=== PATIENT | female | born 1955 | race Caucasian/White ===

== ENCOUNTER 2019-02-07 15:05 | Observation (INO) ==
[2019-02-07] MEDS ORDERED: Isovue-370 500 ML BOTTLE IVP ONE (15:16)
--- NOTE | 2019-02-07 15:27 | Emergency Department Note ---
Disposition Clinical Impression: Stroke Qualifiers: CVA mechanism: unspecified Qualified Code(s): I63.9 - Cerebral infarction, unspecified Leukocytosis Qualifiers: Leukocytosis type: unspecified Qualified Code(s): D72.829 - Elevated white blood cell count, unspecified Disposition: Admitted As Inpatient Condition: Fair Referrals: Wan Landis MD [Partnered Physician] - Forms: ED Satisfaction Letter Time of Disposition: 16:11 General Adult HPI - General Stated complaint: Neuro symptoms LKW 1400 Time Seen by Provider: 02/07/19 15:16 - Related Data Home Medications Medication Instructions Recorded Confirmed Albuterol Sulfate [Albuterol 2 puff PO Q4H PRN 09/07/15 01/12/17 Inhaler] Losartan/Hydrochlorothiazide 1 each PO DAILY 09/07/15 01/12/17 [Hyzaar 100-12.5 Tablet] Metoprolol XL (24 HR) Succ [Toprol 100 mg PO DAILY 09/07/15 01/12/17 XL] Pantoprazole Sodium [Protonix] 40 mg PO HS 09/07/15 01/12/17 Aspirin Enteric Coated [Aspirin EC] 81 mg PO DAILY 12/09/15 01/12/17 Calcium Carbonate [Calcium] 500 mg PO BID 12/09/15 01/12/17 Ergocalciferol (VITAMIN D2) 2,000 unit PO DAILY 12/09/15 01/12/17 [Vitamin D2] LORazepam [Ativan] 0.5 mg PO HS PRN 12/09/15 01/12/17 TraZODone 150 mg PO HS 12/09/15 01/12/17 Ascorbate Calcium [Vitamin C] 500 mg PO DAILY 01/12/17 01/12/17 Diclofenac Sodium [Voltaren] 1 appl TP QID PRN 01/12/17 01/12/17 Fluticasone Propionate Nasal 1 spray NS BID 01/12/17 01/12/17 [Flonase] Fluticasone/Salmeterol [Advair 1 puff IH BID 01/12/17 01/12/17 250-50 Diskus] Gabapentin [Neurontin] 400 mg PO QAM 01/12/17 01/12/17 Ibuprofen [Motrin] 800 mg PO Q8HR PRN 01/12/17 01/12/17 [place]-3/Dha/Epa/Fish Oil [Fish Oil 1 each PO DAILY 01/12/17 01/12/17 1,000 mg Softgel] Simvastatin [Zocor] 40 mg PO HS 01/12/17 01/12/17 Baclofen 10 mg PO PRN PRN MDD 3 06/14/18 06/14/18 Meloxicam 15 mg PO DAILY 06/14/18 06/14/18 Previous Rx's Medication Instructions Recorded Amoxicillin 875 mg PO BID #20 tablet 06/14/18 Phenylephrine HCl/Prometh HCl 5 - 10 ml PO QID PRN #180 syrup 06/14/18 [Promethazine-Phenylephrine Syr] predniSONE [PredniSONE] 0 mg PO DAILY #15 tablet 06/14/18 Allergies Allergy/AdvReac Type Severity Reaction Status Date / Time ciprofloxacin [From Cipro] Allergy Rash Verified 09/12/17 12:39 Past Medical History - Past Medical History Medical history: Reports: COPD, hypertension, other Surgical history: Reports: non-contributory, , hysterectomy, orthopedic, other, other Psychiatric history: Reports: anxiety, depression - Social History Smoking Status: Current every day smoker Smokeless Tobacco Status: No Alcohol use: Reports: none Drug use: Reports: none Course Vital Signs Pulse Rate 63 02/07/19 15:09 Respiratory Rate 16 02/07/19 15:09 Blood Pressure 135/88 02/07/19 15:09 Temperature 98.9 F 02/07/19 15:12 Pulse Rate 68 02/07/19 15:12 Respiratory Rate 15 02/07/19 15:12 Blood Pressure 143/97 02/07/19 15:12 O2 Sat by Pulse Oximetry 98 02/07/19 15:12 Oxygen Delivery Oxygen Delivery Room Air Medical Decision Making - Lab Data Result diagrams: 02/07/19 15:13 02/07/19 15:13 Lab Results 02/07/19 02/07/19 02/07/19 Range/Units 15:13 15:13 15:13 WBC 16.5 H (4.3-11.1) K/mcL RBC 4.49 (3.82-4.97) M/mcL Hgb 15.2 (11.5-15.4) g/dL Hct 44.6 (35.3-44.9) % MCV 99.3 (83.0-100.0) fL MCH 33.9 H (28.0-33.3) pg MCHC 34.1 (31.6-35.5) g/dL RDW 13.7 (11.5-14.5) % Plt Count 242 (140-400) K/mcL MPV 11.0 (9.4-12.4) fL PT 11.6 (9.4-12.1) Seconds INR 1.0 APTT 28.8 (26.0-36.0) Seconds Sodium 140 (136-145) mEq/L Potassium 3.9 (3.5-5.1) mEq/L Chloride 106 (98-107) mEq/L Carbon Dioxide 30 H (23-29) mEq/L BUN 13 (8-23) mg/dL Creatinine 0.93 (0.60-1.20) mg/dL Est GFR ( Amer) > 60 (> 60) Est GFR (Non-Af Amer) > 60 (> 60) BUN/Creatinine Ratio 14 (6-26) Glucose 111 H (70-105) mg/dL Calculated Osmolality 291 (280-300) Calcium 9.4 (8.6-10.3) mg/dL Troponin I < 0.03 (< 0.04) ng/mL Critical Care Time Critical Care Time: Yes Total Critical Care Time: 35 Attestation: Critical care performed: Time is exclusive of separately billable procedures. Time includes: direct patient care, patient reassessment, coordination of patient care, interpretation of data (laboratory data, radiology data, and respiratory data), review of patient's medical records, medical consultation and documentation of patient care. Procedures included in critical care time: Procedures excluded from critical care time: Attestation Statement - Attestation Attestation: I examined this patient and my medical decision-making was reviewed with the Resident Physician. I agree with the documented findings, disposition and elio tment plan as described except to the extent set forth below. Patient presents to the ED with a chief complaint of left-sided weakness. Onset at 10 AM while drinking her coffee. She states it started as tingling in the top of her foot. Progressed to her arm and face. She is having trouble speaking. History of many stroke 2. On exam she is awake alert. Speech is slow and slightly slurred. Cannot appreciate any pronator drift. Sensation is intact and symmetric. Cranial nerves are grossly intact as well. Plan. Symptoms are mild. Stroke alert was called. Patient is sent for CT CTA. 1547. CT head negative. EKG revealed with the resident. Normal sinus at 65. CT unremarkable as well. Patient's symptoms improved. Tele-stroke was performed with neurology. Not acting TPA candidate this time secondary to time from presentation and how mild her symptoms are. We will admit for further stroke workup.
[2019-02-07 15:29] LABS: Hematocrit 44.6 % (35.3-44.9); Hemoglobin 15.2 g/dL (11.5-15.4); Mean Corpuscular HGB Conc 34.1 g/dL (31.6-35.5); Mean Corpuscular Hemoglobin 33.9 pg (28.0-33.3); Mean Corpuscular Volume 99.3 fL (83.0-100.0); Platelet Count 242 K/mcL (140-400); Red Blood Count 4.49 M/mcL (3.82-4.97); Red Cell Distribution Width 13.7 % (11.5-14.5); White Blood Count 16.5 K/mcL (4.3-11.1)
[2019-02-07 15:42] LABS: Prothrombin Time 11.6 Seconds (9.4-12.1)
[2019-02-07 15:44] LABS: Activated Partial Thrombo Time 28.8 Seconds (26.0-36.0)
[2019-02-07 15:45] LABS: BUN/Creatinine Ratio 14 (6-26); Blood Urea Nitrogen 13 mg/dL (8-23); Calcium 9.4 mg/dL (8.6-10.3); Carbon Dioxide 30 mEq/L (23-29); Chloride 106 mEq/L (98-107); Glucose 111 mg/dL (70-105); Osmolality,Calculated 291 (280-300); Potassium 3.9 mEq/L (3.5-5.1); Sodium 140 mEq/L (136-145); eGFR For African Americans > 60 (> 60); eGFR For Non-African Americans > 60 (> 60)
[2019-02-07 15:46] LABS: Troponin I < 0.03 ng/mL (< 0.04)
[2019-02-07] MEDS ORDERED: Aspirin 325 MG TABLET PO ONE (15:49)
--- NOTE | 2019-02-07 15:52 | Emergency Department Note ---
Disposition Clinical Impression: Right sided numbness Disposition: Admitted As Inpatient Condition: Good Forms: ED Satisfaction Letter Time of Disposition: 16:10 Neuro HPI - General Chief Complaint: ED Neuro Symptoms/Deficit Stated Complaint: Neuro symptoms LKW 1400 Time Seen by Provider: 02/07/19 15:16 Source: patient, family Limitations: no limitations Nursing Notes Reviewed: Yes Vital Signs Reviewed: Yes - History of Present Illness HPI Narrative: 63-year-old female history of TIA, hypertension, hyperlipidemia presents to the emergency department with right sided weakness. She states earlier this morning while drinking coffee around 10 AM she began sprinting some numbness along her foot. Over the last several hours this is progressed up to leg and what appears to be in the face with some tongue numbness. She feels like she is slurring her speech. She reports some weakness in her right upper extremity. She is had a similar episode in the past but with associated headaches. She was evaluated for those 2 episodes. She has no sequela from it. She takes a baby aspirin every night. No known history of atrial fibrillation or cardiac ischemic disease. She only takes aspirin and denies any other anticoagulant use. Her sugar was taken here 127. She has intermittent improvement of her tongue numbness. No recent illnesses. No fevers. No ticket bites or recent travel. Stroke alert was initiated. Onset of Symptoms Date: 02/07/19 Onset of Symptoms Time: 10:00 Symptom Onset Unknown: No Timing confirmed by: spouse Location: speech, right leg History of same: Yes - Related Data Home Medications: Home Medications Medication Instructions Recorded Confirmed Albuterol Sulfate [Albuterol 2 puff PO Q4H PRN 09/07/15 01/12/17 Inhaler] Losartan/Hydrochlorothiazide 1 each PO DAILY 09/07/15 01/12/17 [Hyzaar 100-12.5 Tablet] Metoprolol XL (24 HR) Succ [Toprol 100 mg PO DAILY 09/07/15 01/12/17 XL] Pantoprazole Sodium [Protonix] 40 mg PO HS 09/07/15 01/12/17 Aspirin Enteric Coated [Aspirin EC] 81 mg PO DAILY 12/09/15 01/12/17 Calcium Carbonate [Calcium] 500 mg PO BID 12/09/15 01/12/17 Ergocalciferol (VITAMIN D2) 2,000 unit PO DAILY 12/09/15 01/12/17 [Vitamin D2] LORazepam [Ativan] 0.5 mg PO HS PRN 12/09/15 01/12/17 TraZODone 150 mg PO HS 12/09/15 01/12/17 Ascorbate Calcium [Vitamin C] 500 mg PO DAILY 01/12/17 01/12/17 Diclofenac Sodium [Voltaren] 1 appl TP QID PRN 01/12/17 01/12/17 Fluticasone Propionate Nasal 1 spray NS BID 01/12/17 01/12/17 [Flonase] Fluticasone/Salmeterol [Advair 1 puff IH BID 01/12/17 01/12/17 250-50 Diskus] Gabapentin [Neurontin] 400 mg PO QAM 01/12/17 01/12/17 Ibuprofen [Motrin] 800 mg PO Q8HR PRN 01/12/17 01/12/17 [place]-3/Dha/Epa/Fish Oil [Fish Oil 1 each PO DAILY 01/12/17 01/12/17 1,000 mg Softgel] Simvastatin [Zocor] 40 mg PO HS 01/12/17 01/12/17 Baclofen 10 mg PO PRN PRN MDD 3 06/14/18 06/14/18 Meloxicam 15 mg PO DAILY 06/14/18 06/14/18 Previous Rx's Medication Instructions Recorded Amoxicillin 875 mg PO BID #20 tablet 06/14/18 Phenylephrine HCl/Prometh HCl 5 - 10 ml PO QID PRN #180 syrup 06/14/18 [Promethazine-Phenylephrine Syr] predniSONE [PredniSONE] 0 mg PO DAILY #15 tablet 06/14/18 Allergies/Adverse Reactions: Allergies Allergy/AdvReac Type Severity Reaction Status Date / Time ciprofloxacin [From Cipro] Allergy Rash Verified 09/12/17 12:39 All systems ED: reviewed and negative except as stated. Review of Systems: As Per HPI Constitutional: Reports: weakness. Denies: fever, chills ENT ED: Denies: congestion Cardiovascular: Denies: chest pain, palpitations, syncope Respiratory: Denies: dyspnea Gastrointestinal: Denies: abdominal pain, nausea, vomiting Neurological: Reports: headache, weakness, numbness. Denies: confusion Past Medical History - Past Medical History Attestation: Yes The following information was validated with the patient. Source: patient Medical history: Reports: COPD, fibromyalgia, hyperlipidemia, hypertension, TIA, other Surgical history: Reports: non-contributory, , hysterectomy, orthopedic, other, other Psychiatric history: Reports: anxiety, depression - Social History Smoking Status: Current every day smoker Smokeless Tobacco Status: No Alcohol use: Reports: occasionally Drug use: Reports: none Physical Exam - General Limitations: no limitations General appearance: alert, in no apparent distress - Head Head exam: atraumatic, normocephalic, normal inspection - Eye Eye exam: Present: normal appearance, PERRL, EOMI. Absent: nystagmus - ENT ENT exam: normal exam, normal oropharynx, mucous membranes moist - Neck Neck exam: Present: normal inspection, full ROM, trachea midline - Chest Chest inspection: Present: normal inspection, symmetric chest wall rise. Absent: tenderness - Respiratory Respiratory exam: Present: normal lung sounds bilaterally. Absent: respiratory distress, wheezes - Cardiovascular Cardiovascular exam: Present: regular rate, normal rhythm, normal heart sounds - Abdominal Exam Abdominal exam: Present: soft, Non-Tender, normal bowel sounds. Absent: tenderness, distention, guarding, rebound, rigidity - Extremities Exam Extremities exam: Present: normal inspection, full ROM. Absent: tenderness, pedal edema - Neurological Exam Neurological exam: Present: alert, oriented X3, CN II-XII intact - Expanded Neurological Exam Patient oriented to: Present: person, place, time Speech: Present: fluid speech Cranial nerves: EOM function (II, III, IV, ): Normal, facial sensation (V): Normal, facial palsy (VII): Normal, gag reflex (IX): Normal, spinal accessory function (XI): Normal, tongue deviation (XII): Normal Cerebellar function: finger to nose: Normal, heel to porter: Normal Motor strength - LUE: 5/5 Motor strength - RUE: 5/5 Motor strength - LLE: 5/5 Motor strength - RLE: 5/5 Upper motor neuron exam: blue neglect: Absent bilaterally, pronator drift: Absent bilaterally Sensory exam upper extremity: light touch: Normal Sensory exam lower extremity: light touch: Normal Coma Scale Eye Opening: Spontaneous Coma Scale Motor Response: Obeys Commands Coma Scale Verbal Response: Oriented Coma Scale Total: 15 - Psychiatric Psychiatric exam: Present: normal affect, normal mood - Skin Skin exam: Present: warm, dry, intact, normal color. Absent: rash, cyanosis, diaphoresis Course Course Narrative: Stroke alert initiated. NIH score of 2. She is outside the window for TPA and is not a candidate at this time. I spoke with the [facility] neurologist Dr. Corbett who agrees she is not a candidate and that she should be admitted for further evaluation. 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 Patient is agreeable to this plan. - Reevaluation(s) Reevaluation #1: CT imaging unremarkable. She has a leukocytosis of 16 without any IV source infection. This is quite nonspecific. Will obtain a urinalysis. Chest x-ray normal. Patient will be admitted for further evaluation for transient ischemic attack and right side numbness. Time: 16:10 - Consultations Consultation #1: Spoke with on-call hospitalist carola Booth to admit for right side numbness. No further orders at this time Time: 16:47 Vital Signs Pulse Rate 63 02/07/19 15:09 Respiratory Rate 16 02/07/19 15:09 Blood Pressure 135/88 02/07/19 15:09 Temperature 98.9 F 02/07/19 15:12 Pulse Rate 68 02/07/19 15:12 Respiratory Rate 15 02/07/19 15:12 Blood Pressure 143/97 02/07/19 15:12 O2 Sat by Pulse Oximetry 98 02/07/19 15:12 Oxygen Delivery Oxygen Delivery Room Air Neuro Symptoms/Deficit - MDM Narrative Medical decision making narrative: Patient was discussed with my attending physician who agrees with ED management and final disposition. They independently evaluated the patient. Please refer to their attestation to this encounter for additional information. This note was generated by [employer] voice recognition software and as a result grammatical or spelling errors may occur using this program. - Medical Records Medical records reviewed: Yes I reviewed the patient's medical records. - Lab Data Lab results reviewed: Yes I reviewed the patient's lab results. Result diagrams: 02/07/19 15:13 02/07/19 15:13 Lab Results 02/07/19 02/07/19 02/07/19 Range/Units 15:13 15:13 15:13 WBC 16.5 H (4.3-11.1) K/mcL RBC 4.49 (3.82-4.97) M/mcL Hgb 15.2 (11.5-15.4) g/dL Hct 44.6 (35.3-44.9) % MCV 99.3 (83.0-100.0) fL MCH 33.9 H (28.0-33.3) pg MCHC 34.1 (31.6-35.5) g/dL RDW 13.7 (11.5-14.5) % Plt Count 242 (140-400) K/mcL MPV 11.0 (9.4-12.4) fL PT 11.6 (9.4-12.1) Seconds INR 1.0 APTT 28.8 (26.0-36.0) Seconds Sodium 140 (136-145) mEq/L Potassium 3.9 (3.5-5.1) mEq/L Chloride 106 (98-107) mEq/L Carbon Dioxide 30 H (23-29) mEq/L BUN 13 (8-23) mg/dL Creatinine 0.93 (0.60-1.20) mg/dL Est GFR ( Amer) > 60 (> 60) Est GFR (Non-Af Amer) > 60 (> 60) BUN/Creatinine Ratio 14 (6-26) Glucose 111 H (70-105) mg/dL Calculated Osmolality 291 (280-300) Calcium 9.4 (8.6-10.3) mg/dL Troponin I < 0.03 (< 0.04) ng/mL - Radiology Data Radiology results reviewed: Yes I reviewed the patient's radiology results. - EKG Data EKG attestation: Yes I reviewed and interpreted this EKG. EKG results narrative: EKG performed 1534 normal sinus rhythm 65 beats per minute, normal axis, good R wave progression, no ST elevation or depression, intervals appear within normal limits. Compared to prior EKG performed 02/09/2015 which shows similar consistent findings. No acute ischemic changes. NIH Stroke Scale - Level of Consciousness LOC: Alert - LOC Questions LOC Questions: Answers both correctly - LOC Commands LOC Commands: Performs both correctly - Best Gaze Best Gaze: Normal - Visual Visual: No visual loss - Facial Palsy Facial Palsy: Normal - Motor Arms Motor Arm-Left: No drift for 10 seconds Motor Arm-Right: No drift for 10 seconds - Motor Legs Motor Leg-Left: No drift for 5 seconds Motor Leg-Right: No drift for 5 seconds - Limb Ataxia Limb Ataxia: Absent of affected limb too weak to perform exam - Sensory Sensory: Mild to moderate loss, "not as sharp" - Best Language Best Language: No aphasia - Dysarthria Dysarthria: Mild, slurs some words - Extinction and Inattention Extinction and Inattention: Normal - NIHSS Total Score NIHSS Total Score: 2 TPA Checklist - Source Information Source: Family - Eligibilty for IV tPA 1. LKW equal to or less than 4.5 hours be before treatment: No - LKW: 3-4.5 hrs Add. Warnings/Precautions Patient/family understanding: The patient/family members have been counseled and understood the risk, benefit, and alternatives of treatment.
[2019-02-07 16:47] LABS: Bilirubin,Urine Small (Negative); Blood,Urine Negative (Negative); Clarity,Urine Clear (Clear); Color,Urine Yellow (Yellow); Glucose,Urine (UA) Normal (Normal); Ketones,Urine Negative (Negative); Leukocyte Esterase,Urine Negative (Negative); Nitrite,Urine Negative (Negative); Protein,Urine Negative (Neg-Trace); Specific Gravity,Urine > 1.030 (1.010-1.025); Urobilinogen,Urine Normal (Normal)
[2019-02-07] MEDS ORDERED: *HR* LORazepam 0.5 MG TABLET PO PRN (17:28)
[2019-02-07] MEDS ORDERED: *HR* Promethazine 25 MG/ML VIAL IVP PRN (17:29)
[2019-02-07] MEDS ORDERED: Naloxone 0.4 MG/ML INJ IVP PRN (17:29)
[2019-02-07] MEDS ORDERED: Ondansetron 4 MG/2 ML VIAL IVP PRN (17:29)
[2019-02-07] MEDS ORDERED: MOM Conc 10 ML UD.LIQ PO PRN (17:29)
[2019-02-07] MEDS ORDERED: Mag Hydrox/Al Hydrox/Simeth 30 ML UDC PO PRN (17:29)
[2019-02-07] MEDS ORDERED: Acetaminophen 325 MG TABLET PO PRN (17:29)
[2019-02-07] MEDS ORDERED: traMADol 50 MG TABLET PO PRN (17:29)
--- NOTE | 2019-02-07 17:38 | Internal Med History&Physical ---
Date of Encounter: 02/07/19 Time of Encounter: 17:36 Internal Medicine - H&P: HPI Admitted From: Home Plans for Post Hospital Care: Home History of present illness: Ms. Guadalupe is a 63 year old female with history of TIA, hypertension, hyperlipidemia presents to the emergency department with right sided weakness. She states earlier this morning while drinking coffee around 10 AM she began sprinting some numbness along her foot. Over the last several hours this is progressed up to leg and what appears to be in the face with some tongue numbne ss. She feels like she is slurring her speech. She reports some weakness in her right upper extremity. She is had a similar episode in the past but with associated headaches. She was evaluated for those 2 episodes. She has no sequela from it. She takes a baby aspirin every night. No known history of atrial fibrillation or cardiac ischemic disease. She only takes aspirin and denies any other anticoagulant use. Her sugar was taken 127. She has intermittent improvement of her tongue numbness. No recent illnesses. No fevers. No ticket bites or recent travel. Stroke alert was initiated, per [facility], patient is not a candidate for TPA. In the ED, patient vital signs were stable, labs were remarkable, CT head and a CTA head and neck were unremarkable. Patient will be admitted for further evaluation and management. CODE STATUS discussed with patient, she wishes to be full code. Past Med Surg Social Fam HX - Past Medical History Medical history: COPD, fibromyalgia, hyperlipidemia, hypertension, TIA, other Additional medical history: hypercholesterolemia. htn. copd. tobacco abuse. medial menicus tear Psychiatric history: anxiety, depression - Past Surgical History Surgical History: non-contributory, , hysterectomy, orthopedic, other, other Additional surgical history: egd - Social History Smoking Status: Current every day smoker Smokeless Tobacco Status: No Alcohol use: occasionally Drug use: none Internal Medicine - H&P: Meds Albuterol Sulfate [Albuterol Inhaler] 2 puff PO Q4H PRN 09/07/15 [History] Metoprolol XL (24 HR) Succ [Toprol XL] 100 mg PO DAILY 09/07/15 [History] Pantoprazole Sodium [Protonix] 40 mg PO DAILY 09/07/15 [History] Aspirin Enteric Coated [Aspirin EC] 81 mg PO DAILY 12/09/15 [History] LORazepam [Ativan] 0.5 mg PO HS PRN 12/09/15 [History] TraZODone 150 mg PO HS 12/09/15 [History] Ascorbate Calcium [Vitamin C] 500 mg PO DAILY 01/12/17 [History] Fluticasone Propionate Nasal [Flonase] 1 spray NS BID 01/12/17 [History] Fluticasone/Salmeterol [Advair 250-50 Diskus] 1 puff IH BID 01/12/17 [History] Gabapentin [Neurontin] 400 mg PO QAM 01/12/17 [History] Simvastatin [Zocor] 40 mg PO HS 01/12/17 [History] Baclofen 10 mg PO TID PRN MDD 3 06/14/18 [History] Cholecalciferol (D-3) [Vitamin D] 2,000 unit PO DAILY 02/07/19 [History] DULoxetine [Cymbalta] 60 mg PO DAILY 02/07/19 [History] Etodolac [Lodine] 400 mg PO BID PRN 02/07/19 [History] Gabapentin [Neurontin] 800 mg PO HS 02/07/19 [History] Losartan/Hydrochlorothiazide [Hyzaar 100-12.5 Tablet] 1 each PO DAILY 02/07/19 [History] Mirabegron [Myrbetriq] 50 mg PO DAILY 02/07/19 [History] Allergy/AdvReac Type Severity Reaction Status Date / Time ciprofloxacin [From Cipro] Allergy Rash Verified 09/12/17 12:39 All Systems PM: A 10-system review of systems was performed and is negative for pertinent findings except as documented above in the HPI. Review of systems: REVIEW OF SYSTEMS: CONSTITUTIONAL: No weight loss, fever, chills, weakness or fatigue. HEENT: Eyes: No visual loss, blurred vision, double vision or yellow sclerae. Ears, Nose, Throat: No hearing loss, sneezing, congestion, runny nose or sore throat. SKIN: No rash or itching. CARDIOVASCULAR: No chest pain, chest pressure or chest discomfort. No palpitations or edema. RESPIRATORY: No shortness of breath, cough or sputum. GASTROINTESTINAL: No anorexia, nausea, vomiting or diarrhea. No abdominal pain or blood. GENITOURINARY: No dysuria, urgency, or frequency. NEUROLOGICAL: No headache, dizziness, syncope, paralysis, ataxia, numbness or tingling in the extremities. No change in bowel or bladder control. MUSCULOSKELETAL: No muscle, back pain, joint pain or stiffness. HEMATOLOGIC: No anemia, bleeding or bruising. LYMPHATICS: No enlarged nodes. No history of splenectomy. PSYCHIATRIC: No history of depression or anxiety. ENDOCRINOLOGIC: No reports of sweating, cold or heat intolerance. No polyuria or polydipsia. - Constitutional Vitals: Temp Pulse Resp BP Pulse Ox 98.9 F 58 16 143/97 98 02/07/19 15:12 02/07/19 17:18 02/07/19 17:18 02/07/19 15:12 02/07/19 15:12 General appearance: Present: A&O X 3 Exam: PHYSICAL EXAMINATION: GENERAL APPEARANCE: The patient is alert, oriented and in no acute distress. HEENT: Head is normocephalic. The sinuses are nontender. Pupils are equal and reactive. The nares are patent. Oropharynx clear without lesions. NECK: Supple without lymphadenopathy. HEART: Regular rate and rhythm. LUNGS: No crackles or wheezes are heard. ABDOMEN: Soft, nontender, nondistended with good bowel sounds heard. Inguinal area is normal. EXTREMITIES: Without cyanosis, clubbing or edema. NEUROLOGICAL: Gross nonfocal. SKIN: Warm and dry without any rash. Internal Med - H&P Results - Labs CBC & Chem 7: 02/07/19 15:13 02/07/19 15:13 Labs: Short CBC 02/07/19 Range/Units 15:13 WBC 16.5 H (4.3-11.1) K/mcL Hgb 15.2 (11.5-15.4) g/dL Hct 44.6 (35.3-44.9) % Plt Count 242 (140-400) K/mcL BMP 02/07/19 15:13 Sodium 140 Potassium 3.9 Chloride 106 Carbon Dioxide 30 H BUN 13 Creatinine 0.93 Glucose 111 H Calcium 9.4 Cardiac Enzymes 02/07/19 Range/Units 15:13 Troponin I < 0.03 (< 0.04) ng/mL Urine 02/07/19 Range/Units 16:24 Urine Color Yellow (Yellow) Urine Clarity Clear (Clear) Urine pH 7.0 (5.0-8.0) pH Units Ur Specific [place] > 1.030 H (1.010-1.025) Urine Protein Negative (Neg-Trace) mg/dL Urine Glucose (UA) Normal (Normal) mg/dL - Impressions ITS Impressions Chest X-Ray 02/07/19 15:16 IMPRESSION: No acute process. D/ / Juan Jose Flores MD / Juan Jose Flores MD Interpreting Provider: Juan Jose Flores MD Head CT 02/07/19 15:16 IMPRESSION: No intracranial hemorrhage, mass effect, or midline shift. If there is clinical concern for acute ischemia, consider further evaluation with MRI. D/ / 02/07/2019 15:45:14 Dung Marshall / Mary Ag Interpreting Provider: Dung Marshall Head CTA 02/07/19 15:16 IMPRESSION: Unremarkable CTA of the head and neck. The results examination were discussed with Dr. Denise on 02/07/2019 at 4:08 p.m. D/ / Harlan Alexis MD / Harlan Alexis MD Interpreting Provider: Harlan Alexis MD Neck CTA 02/07/19 15:16 IMPRESSION: Unremarkable CTA of the head and neck. The results examination were discussed with Dr. Denise on 02/07/2019 at 4:08 p.m. D/ / Harlan Alexis MD / Harlan Alexis MD Interpreting Provider: Harlan Alexis MD - Assessment and Plan (1) Right sided numbness Current Visit: Yes Status: Acute Assessment and plan: 63-year-old female with history of TIA presented with acute onset of right-sided weakness and numbness. Symptoms started numbness on the right feet and progressively extended to the right knee, led on, she developed right facial anatomical numbness, associated with right sided weakness. Symptoms improved after she took aspirin and continued to improve upon arrival to the ED. CT head and a CTA head/neck were unremarkable. Candidate for TPA per [facility] stroke center consultation. Pending MRI of brain. PT/OT/ST consult. (2) HTN (hypertension) Current Visit: No Status: Chronic Assessment and plan: BP currently well controlled, continue home medication Qualifiers: Hypertension type: essential hypertension Qualified Code(s): I10 - Essential (primary) hypertension (3) COPD (chronic obstructive pulmonary disease) Current Visit: No Status: Chronic Assessment and plan: patient reported absence of respiratory distress, continue home medications. Qualifiers: COPD type: unspecified COPD Qualified Code(s): J44.9 - Chronic obstructive pulmonary disease, unspecified (4) Hyperlipidemia Current Visit: No Status: Chronic Assessment and plan: Will repeat lipid panel in the morning, continue home medications. Qualifiers: Hyperlipidemia type: unspecified Qualified Code(s): E78.5 - Hyperlipidemia, unspecified (5) Hx of TIA (transient ischemic attack) and stroke Current Visit: No Status: Chronic Assessment and plan: Continue aspirin. (6) DVT prophylaxis Current Visit: Yes Status: Acute Assessment and plan: Heparin subcutaneous. - Time Spent With Patient Total time spent is greater than 50% in coordination of care (as documented) at patient's floor/unit and/or counseling patient: Greater than 35 minutes
[2019-02-07] MEDS ORDERED: *HR* Heparin 5,000 UNIT/ML VIAL SQ SCH (18:00)
[2019-02-07 18:05] VITALS: BP 120/65
[2019-02-07] MEDS ORDERED: Gabapentin 400 MG CAPSULE PO SCH (21:00)
[2019-02-07] MEDS ORDERED: Fluticasone Propionate Nasal 50 MCG/SPRAY BOTTLE NS SCH (21:00)
[2019-02-07] MEDS ORDERED: traZODone 50 MG TABLET PO SCH (21:00)
--- NOTE | 2019-02-07 21:33 | Event Note ---
Date of Encounter: 02/07/19 Time of Encounter: 21:32 Notified by nurse of patient requesting to leave AMA. Discussed with patient at bedside who remains fully alert and oriented, states she feels better and doesn't feel like she needs to be here any longer. Informed leaving AMA could result in worsening of condition and or . Patient verbalized understanding. Signed AMA form with nurse and patient, nurse to remove patient IV(s) prior to departure.
[2019-02-07] MEDS ORDERED: Budesonide/Formoterol 80/4.5 MDI IH SCH (22:00)
[2019-02-08] MEDS ORDERED: Metoprolol XL (24 HR) Succ 50 MG TAB.ER.24H PO SCH (09:00)
[2019-02-08] MEDS ORDERED: Ascorbic Acid 500 MG TABLET PO SCH (09:00)
[2019-02-08] MEDS ORDERED: Mirabegron [Myrbetriq] 50 MG) PO SCH (09:00)
[2019-02-08] MEDS ORDERED: Gabapentin 400 MG CAPSULE PO SCH (09:00)
[2019-02-08] MEDS ORDERED: Aspirin Enteric Coated 81 MG Tablet PO SCH (09:00)
[2019-02-08] MEDS ORDERED: Cholecalciferol (D-3) 1,000 UNIT (25MCG) TABLET PO SCH (09:00)
[2019-02-08] MEDS ORDERED: Losartan/HCTZ 50-12.5 TABLET PO SCH (09:00)
--- NOTE | 2019-02-08 12:42 | Electrocardiograph Report ---
[place] [facility] Test Date: 2019-02-07 Pat Name: Pilar Guadalupe Department: [id number] Room: 3B11 Gender: F [employer] Manager: : [id number] Requested By: Mallorie See Order Number: [id number] Reading MD: Gautam Schafer Measurements Intervals Marceline Rate: 65 P: 74 MA: 131 QRS: -21 QRSD: 105 T: 44 QT: 435 QTc: 453 Interpretive Statements Sinus rhythm Borderline left axis deviation Electronically Signed On 02-08-2019 12:41:17 EDT by Gautam Schafer
== END 2019-02-07 21:35 | disposition left against medical advice (07) ==
LOC: EMEROOARM 15:05 → 3BNU 15:05
PROVIDERS: ADMIT Internal Medicine Nephrology; ATTEND Internal Medicine Nephrology